=== PATIENT | female | born 1960 | race African-American/Black ===

== ENCOUNTER 2017-02-27 12:54 | Inpatient (IN) | payer MEDICAID, OTHER ==
[~2017-02-27] VITALS: Ht 171.4 cm; Wt 98.9 kg
[2017-02-27 14:37] LABS: BASOPHILS % 0.6 % (0.0-2.0); EOSINOPHILS % 0.1 % (0.0-5.0); HEMATOCRIT. 42.8 % (36.0-48.0); HEMOGLOBIN. 14.5 g/dL (12.0-16.0); LYMPHOCYTES % 32.8 % (20.0-50.0); MEAN CORPUSCULAR HEMOGLOBIN 31.5 pg (28.0-32.0); MEAN PLATELET VOLUME 8.7 fl (7.4-10.4); MONOCYTES % 8.8 % (2.0-8.0); NEUTROPHILS % 57.7 % (40.0-76.0); PLATELET 214 x1000/uL (130-400); RED CELL DISTRIBUTION WIDTH 13.6 % (11.6-14.6)
[2017-02-27 14:47] LABS: CARBON DIOXIDE 30 mEq/L (21-32); CHLORIDE 97 mEq/L (98-107)
[2017-02-27] MEDS ORDERED: ALBUTEROL (0.083%) 2.5MG/3ML NEB HHN STA ×2 (15:02→17:14)
[2017-02-27] MEDS ORDERED: SODIUM CHLORIDE 0.9% 1,000 ML IV ONE (15:02)
[2017-02-27] MEDS ORDERED: IPRATROPIUM BROMIDE (0.02%) 0.5MG/2.5ML NEB HHN STA (15:02)
[2017-02-27] MEDS ORDERED: METHYLPREDNISOLONE SOD SUCC 125 MG/2 ML VIAL IV STA (15:02)
[2017-02-27] MEDS ORDERED: KETOROLAC 30MG/ML VIAL IV ONE (15:15)
[2017-02-27 16:01] LABS: TROPONIN I < 0.02 ng/mL (0.00-0.04)
[2017-02-27 16:37] LABS: INR 1.1; PROTHROMBIN TIME 10.9 sec (9.4-11.6)
[2017-02-27] MEDS ORDERED: MAGNESIUM 2 G PREMIX 50 ML IV STA (17:14)
[2017-02-27] MEDS ORDERED: ONDANSETRON HCL 4MG/2ML VIAL IV PRN (18:15)
[2017-02-27] MEDS ORDERED: MAGNESIUM/ALUMINUM HYDROXIDE/SIMETHICONE 30ML UDC PO PRN (18:15)
[2017-02-27] MEDS ORDERED: DOCUSATE SODIUM 100MG CAPSULE PO PRN (18:15)
[2017-02-27] MEDS ORDERED: CLONIDINE 0.1MG TABLET PO PRN (18:15)
[2017-02-27] MEDS ORDERED: IPRATROPIUM/ALBUTEROL 0.5-3(2.5)MG/3ML NEB INH PRN (18:15)
[2017-02-27] MEDS ORDERED: KCL 10MEQ/50ML PREMIX 50 ML IV SCH (21:00)
[2017-02-27] MEDS ORDERED: POTASSIUM CHLORIDE 20MEQ TABLET SR PO SCH (21:00)
[2017-02-27] MEDS ORDERED: METHYLPREDNISOLONE SOD SUCC 40 MG/ML VIAL IV SCH (22:00)
[2017-02-27 22:35] VITALS: BP 131/80
[2017-02-27] MEDS ORDERED: AZITHROMYCIN 500 MG TABLET PO SCH (22:47)
[2017-02-27 23:00] VITALS: BP 100/57
[2017-02-27] MEDS: ACETAMINOPHEN 325MG TABLET PO PRN (23:18)
[2017-02-27] MEDS: METHYLPREDNISOLONE SOD SUCC 40 MG/ML VIAL IV SCH (23:25)
[2017-02-27 23:48] LABS: CREATINE KINASE 274 IU/L (26-192); CREATINE KINASE MB FRACTION 2.2 ng/mL (0.5-3.6); TROPONIN I < 0.02 ng/mL (0.00-0.04)
[2017-02-28] VITALS: BP 98/54
[2017-02-28] MEDS ORDERED: POTASSIUM CHLORIDE 20MEQ TABLET SR PO SCH (00:15)
[2017-02-28] MEDS ORDERED: AMLO1CAP6 PO (01:12)
[2017-02-28] MEDS ORDERED: TRAZADONE PO (01:12)
[2017-02-28] MEDS ORDERED: SEROQUEL PO (01:12)
[2017-02-28] MEDS ORDERED: TYLENOL #3 PO (01:12)
[2017-02-28 04:00] VITALS: BP 108/70
[2017-02-28] MEDS: METHYLPREDNISOLONE SOD SUCC 40 MG/ML VIAL IV SCH ×2 (05:27→14:26)
[2017-02-28] MEDS: ACETAMINOPHEN 325MG TABLET PO PRN ×2 (06:20→14:26)
[2017-02-28 07:24] LABS: CLARITY URINE CLOUDY (CLEAR); COLOR URINE YELLOW (YELLOW); KETONES URINE TRACE (NEGATIVE); LEUKOCYTE ESTERASE URINE NEGATIVE (NEGATIVE); NITRITE URINE NEGATIVE (NEGATIVE); OCCULT BLOOD URINE NEGATIVE (NEGATIVE); PROTEIN URINE NEGATIVE (NEGATIVE); UROBILINOGEN URINE 0.2 E.U./dL (0.2-1.0)
[2017-02-28 07:41] LABS: CREATINE KINASE 265 IU/L (26-192); CREATINE KINASE MB FRACTION 3.3 ng/mL (0.5-3.6); HDL CHOLESTEROL 41 mg/dL (40-59); LDL CHOLESTEROL 91 mg/dL (5-100); TROPONIN I < 0.02 ng/mL (0.00-0.04)
[2017-02-28 08:00] VITALS: BP 142/88
[2017-02-28 08:29] LABS: *AMPHETAMINES SCREEN URINE NEGATIVE (NEGATIVE); *BARBITURATES SCREEN URINE NEGATIVE (NEGATIVE); *BENZODIAZEPINES SCREEN URINE NEGATIVE (NEGATIVE); *COCAINE SCREEN URINE NEGATIVE (NEGATIVE); CANNABINOID URINE SCREEN NEGATIVE (NEGATIVE); METHADONE URINE SCREEN NEGATIVE (NEGATIVE); OPIATES URINE SCREEN PRESUMTIVE POSITIVE (NEGATIVE); PHENCYCLIDINE URINE SCREEN NEGATIVE (NEGATIVE)
[2017-02-28] MEDS ORDERED: ENOXAPARIN 40MG/0.4ML SYR SUBCUT SCH (09:00)
[2017-02-28 09:19] LABS: BASOPHILS % 0.2 % (0.0-2.0); HEMATOCRIT. 39.8 % (36.0-48.0); HEMOGLOBIN. 13.6 g/dL (12.0-16.0); LYMPHOCYTES % 15.9 % (20.0-50.0); MEAN CORPUSCULAR VOLUME 93.4 fL (81.0-99.0); MONOCYTES % 4.1 % (2.0-8.0); NEUTROPHILS % 79.8 % (40.0-76.0); PLATELET 227 x1000/uL (130-400); RED BLOOD CELL COUNT 4.26 mill/uL (4.2-5.4); RED CELL DISTRIBUTION WIDTH 13.6 % (11.6-14.6)
[2017-02-28] MEDS ORDERED: HYDR12.529 PO (11:55)
[2017-02-28] MEDS ORDERED: LORA0.5T2 PO (11:55)
[2017-02-28] MEDS ORDERED: LOT105 PO (11:55)
[2017-02-28] MEDS ORDERED: DIPH1TAB PO (11:55)
[2017-02-28] MEDS ORDERED: QUET100T PO (11:58)
[2017-02-28 12:00] VITALS: BP 117/58
[2017-02-28] MEDS ORDERED: DIPHENOXYLATE/ATROPINE 2.5/0.025MG TABLET PO SCH (12:00)
[2017-02-28] MEDS ORDERED: BENAZEPRIL PO SCH (12:00)
[2017-02-28] MEDS ORDERED: AMLODIPINE BESYLATE PO SCH (12:00)
[2017-02-28] MEDS ORDERED: QUETIAPINE FUMARATE 100MG TABLET PO SCH (12:00)
[2017-02-28] MEDS ORDERED: HYDROCHLOROTHIAZIDE 12.5MG CAPSULE PO SCH (12:00)
[2017-02-28] MEDS ORDERED: TLXL5 PO (12:27)
[2017-02-28] MEDS ORDERED: AMLODIPINE 10MG TABLET PO SCH (13:00)
[2017-02-28] MEDS ORDERED: BENAZEPRIL 20MG TABLET PO SCH (13:00)
[2017-02-28 14:21] LABS: CARBON DIOXIDE 30 mEq/L (21-32); CHLORIDE 101 mEq/L (98-107)
[2017-02-28 15:23] VITALS: BP 117/58
[2017-02-28 16:00] VITALS: BP 119/68
[2017-02-28] MEDS ORDERED: LORAZEPAM 0.5MG TABLET PO SCH (17:00)
== END 2017-02-28 16:05 | disposition home or self-care (01) | DRG 140 ==
LOC: ER 12:54 → 5WST 17:31 → ENRESERV 20:54
PROVIDERS: ADMIT Internal Medicine; ATTEND Internal Medicine
DX: J44.1 Chronic obstructive pulmonary disease with (acute) exacerbation (principal); N17.0 Acute kidney failure with tubular necrosis; J45.901 Unspecified asthma with (acute) exacerbation; I12.9 Hypertensive chronic kidney disease with stage 1 through stage 4 chronic kidney disease, or unspecified chronic kidney disease; E87.6 Hypokalemia; F17.200 Nicotine dependence, unspecified, uncomplicated; N18.9 Chronic kidney disease, unspecified; R73.9 Hyperglycemia, unspecified; E07.81 Sick-euthyroid syndrome; F15.90 Other stimulant use, unspecified, uncomplicated
CPT/HCPCS: 36415; 71010; 80048; 80053; 80061; 80305; 81001; 82550; 82553; 83605; 83690; 83735; 83880; 84443; 84484; 85025; 85610; 87040; 87804; 93005; 93970; 94640; 96365; 96366; 96375; 99285; 99406; J1650; J1885; J2920; J2930; J3475; J7030; J7611

== ENCOUNTER 2022-12-23 14:54 | Emergency (ER) | payer MEDICAID, OTHER ==
[~2022-12-23] VITALS: Ht 172.7 cm; Wt 78.0 kg
[2022-12-23 14:56] VITALS: O2SAT 98
[2022-12-23] MEDS ORDERED: SODIUM CHLORIDE 0.9% 1,000 ML IV ONE (15:45)
[2022-12-23 16:46] LABS: BASOPHILS % 0.5 % (0.0-2.0); DIFFERENTIAL COMMENT 0; EOSINOPHILS % 1.4 % (0.0-5.0); HEMATOCRIT. 40.1 % (36.0-48.0); HEMOGLOBIN. 12.6 g/dL (12.0-16.0); MEAN CORPUSCULAR HEMOGLOBIN 32.2 pg (28.0-32.0); MEAN CORPUSCULAR HGB CONC 31.3 g/dL (31.0-37.0); MEAN CORPUSCULAR VOLUME 102.8 fL (81.0-99.0); MEAN PLATELET VOLUME 8.7 fl (7.4-10.4); MONOCYTES % 6.7 % (2.0-8.0); NEUTROPHILS % 69.4 % (40.0-76.0); PLATELET 205 x1000/uL (130-400); RED CELL DISTRIBUTION WIDTH 16.2 % (11.6-14.6); WHITE BLOOD COUNT 8.7 x1000/uL (4.5-11.0)
[2022-12-23 17:02] LABS: CHLORIDE 104 mEq/L (98-107); INDEX HEMOLYSI 3 (1-3); INDEX ICTERIC 1 (1-4); INDEX LIPEMIC 1 (1-3); POTASSIUM 3.4 mEq/L (3.5-5.1); SODIUM 138 mEq/L (136-145)
[2022-12-23 17:04] LABS: AMMONIA 61 uMol/L (<32)
[2022-12-23 17:11] LABS: ALANINE AMINOTRANSFERASE 14 IU/L (13-61); ALBUMIN 3.1 g/dL (3.4-5.0); ASPARTATE AMINOTRANSFERASE 18 IU/L (15-37); BILIRUBIN TOTAL 0.2 mg/dL (0.1-1.0); CALCIUM 8.7 mg/dL (8.5-10.1); CARBON DIOXIDE 26 mEq/L (21-32); CREATINE KINASE 85 IU/L (26-192); CREATININE 2.1 mg/dL (0.6-1.3); GLUCOSE 107 mg/dL (70-105); PROTEIN TOTAL 6.8 g/dL (6.0-8.3); TROPONIN I HIGH SENSITIVITY 5 ng/L (<54); UREA NITROGEN BLOOD 40 mg/dL (7-21)
[2022-12-23] MEDS ORDERED: LACTULOSE 20G/30ML UDC PO ONE (18:15)
[2022-12-23 18:38] LABS: CLARITY URINE CLEAR (CLEAR); COLOR URINE YELLOW (YELLOW); GLUCOSE URINE NEGATIVE (NEGATIVE); KETONES URINE NEGATIVE (NEGATIVE); LEUKOCYTE ESTERASE URINE 1+ (NEGATIVE); NITRITE URINE NEGATIVE (NEGATIVE); OCCULT BLOOD URINE NEGATIVE (NEGATIVE); PH URINE 5.5 (4.5-8.0); PROTEIN URINE TRACE (NEGATIVE); SPECIFIC GRAVITY URINE 1.018 (1.005-1.030)
[2022-12-23 18:54] LABS: RBC URINE NONE SEEN /hpf (0-2); SQUAMOUS EPITHELIAL CELL URINE 1+ /lpf (RARE/1+)
[2022-12-23 18:55] LABS: BACTERIA URINE NONE SEEN
[2022-12-23] MEDS ORDERED: CEFTRIAXONE 1GM PREMIX 50 ML IV ONE (19:15)
[2022-12-23 19:47] VITALS: TEMP 98
[2022-12-23] MEDS ORDERED: LACTULOSE 20G/30ML UDC PO NR (20:00)
[2022-12-23 20:37] VITALS: BP 112/93; PULSE 105; RESP 18
== END 2022-12-23 21:08 | disposition short-term general hospital (02) ==
LOC: ER 14:54
DX: R41.82 Altered mental status, unspecified (principal); E78.00 Pure hypercholesterolemia, unspecified; I10 Essential (primary) hypertension
CPT/HCPCS: 80053; 81003; 82140; 82550; 82962; 83690; 85025; 87040; 84484; 36415; 71045; 70450; 93005; 96361; 96365; 99285; J0696; J7030; Z7610 ×4